=== PATIENT | female | born 1995 | race Hispanic/Latino ===

== ENCOUNTER 2020-05-31 12:01 | Emergency (ER) | payer OTHER ==
[~2020-05-31] VITALS: Ht 147.3 cm; Wt 54.4 kg
[2020-05-31] MEDS ORDERED: SODIUM CHLORIDE FLUSH 10 ML SYR INJ PRN (12:30)
--- OUTSIDE RECORDS SUMMARY | 2020-05-31 12:56 | XMS REPORT | Continuity of Care Document ---
Author Author [employer] Address Unknown Phone Unavailable Care Team Providers Care Part Time Receptionist Name Role Phone [employer] Unavailable Un available Problems Problem Status Onset Date Classification Date Reported Comments Source Onychomycosis (disorder) Active Problem 09/28/2018 [facility] Otitis externa (disorder) Acti ve Problem [facility] Skin - benign mole and nevus (disorder) Active Problem 09/28/2018 [facility] Sore throat symptom (finding) Active Problem [facility] Medications Medication Details Route Status Patient Instructions Ordering Provider Order Date Source Terbinafine hydrochloride 10 MG/ML Topical [place] 1 spray, TOP, BID, X 30 day, # 30 mL, 0 Refill(s), Pharmacy: [facility] Active 09/25/2018 [facility] Ciprofloxacin 3 MG/ML / Dexamethasone 1 MG/ML Otic Suspension [Ciprodex] 4 drp, LEFT EAR, BID, X 3 day, # 1 btl, 0 Refill(s), Pharmacy: [facility] Active 09/25/2018 [facility] ibuprofen 600 mg oral tablet 6 00 mg = 1 tab, PO, Q8H, PRN Pain or Fever, Take with food, X 10 day, # 30 tab, 0 Refill(s), Pharmacy: [facility] Active 09/25/2018 [facility] Allergies, Adverse Reactions, Alerts No Known Medication Allergies Immunizations No Data Provided for This Section Results No Data Provided for This Section Pathology Reports No Data Provided for This Section Diagnostic Reports No Data Provided for This Section Consultation Notes No Data Provided for This Section Discharge Summaries No Data Provided for This Section History and Physicals No Data Provided for This Section Vital Signs Vital Sign Value Date Comments Source BMI Calculated 21.66 09/25/2018 [facility] Weight 48.636 09/25/2018 [facility] Height 149.86 cm 09/25/2018 [facility] Respitory Rate 16 09/25/2018 [facility] Temperature Oral (F) 97.2 F 09/25/2018 [facility] Heart Rate 67 09/25/2018 [facility] Systolic (mm Hg) 111 09/25/2018 [facility] Diastolic (mm Hg) 75 09/25/2018 [facility] Encounters Location Location Details Encounter Type Encounter Number Reason For Visit Attending Provider ADM Date DC Date Status Source Outpatient [id number] IVETTE HADLEY 11/29/2016 [facility] Outpatient [id number] DANA MCCONNELL 09/25/2018 [facility] Outpatient [id number] Dana Killian 09/1509/26/2018 [facility] Procedures No Data Provided for This Section Assessment and Plan No Data Provided for This Section Plan of Care No Data Provided for This Section Social History Social History Date Source Social History TypeResponse Smoking Status Never smoker; Exposure to Tobacco Smoke None; Cigarette Smoking Last 365 Days No; Reg Smoking Cessation Counseling No entered on: 09/25/18 09/25/2018 [facility] Family History No Data Provided for This Section Advance Directives No Data Provided for This Section Functional Status No Data Provided for This Section
[2020-05-31] MEDS ORDERED: DONNATAL/LIDOCAINE/MAALOX 30 ML SUSP PO ONE (13:15)
[2020-05-31] MEDS ORDERED: KETOROLAC TROMETHAMINE 30 MG/ML VIAL IV ONE (13:15)
[2020-05-31 13:21] LABS: BASOPHILS % 0.2 % (0.0-1.0); EOSINOPHILS # (AUTO) 0.1 (0.0-0.4); EOSINOPHILS % 0.7 % (0.0-6.0); HEMATOCRIT 45.8 % (34.2-44.1); HEMOGLOBIN 15.5 g/dL (12.0-16.0); LYMPHOCYTES # (AUTO) 1.7 (1.0-3.2); LYMPHOCYTES % 10.2 % (18.0-39.1); MEAN CORPUSCULAR HEMOGLOBIN 30.6 pg (28-32); MEAN CORPUSCULAR HGB CONC 33.8 g/dL (31-35); MEAN CORPUSCULAR VOLUME 90.3 fL (81-99); MONOCYTES # (AUTO) 0.6 (0.2-0.8); MONOCYTES % 3.5 % (4.4-11.3); NEUTROPHILS # (AUTO) 13.8 (2.1-6.9); PLATELET COUNT 320 x10e3/uL (140-360); RED BLOOD COUNT 5.07 x10e6/uL (3.6-5.1); RED CELL DISTRIBUTION WIDTH 11.9 % (11.7-14.4)
[2020-05-31] MEDS ORDERED: LIDOCAINE VISC 2% SOLN 15 ML UDC ONE (13:32)
[2020-05-31] MEDS ORDERED: KETOROLAC TROMETHAMINE 30 MG/ML VIAL ONE (13:32)
[2020-05-31] MEDS ORDERED: MAGNESIUM/ALUMINUM/SIMETHICONE 30 ML UDC ONE (13:32)
[2020-05-31] MEDS ORDERED: BELLADONNA ALK/PHENOBARBITAL 5 ML UDC ONE (13:32)
[2020-05-31] MEDS ORDERED: SODIUM CHLORIDE 0.9% 1000ML 1,000 ML IV STA (13:43)
[2020-05-31] MEDS ORDERED: PIPER-TAZ 3.375 GM 50 ML IV ONE (13:45)
[2020-05-31] MEDS ORDERED: SODIUM CHLORIDE 0.9% 50ML 50 ML ONE (14:07)
[2020-05-31] MEDS ORDERED: IOPAMIDOL 370 MG/ML 200 ML INFUS..BTL INJ ONE (14:07)
[2020-05-31] MEDS ORDERED: PIPER-TAZ 3.375 GM 50 ML ONE (14:30)
[2020-05-31] MEDS ORDERED: SODIUM CHLORIDE 0.9% 1000ML 1,000 ML ONE (14:30)
--- NOTE | 2020-05-31 14:42 | Emergency Department Note ---
History of Present Illnes History of Present Illness Chief Complaint: epigastric pain History of Present Illness This is a 25 year old female. was doing well prior to this. 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: No Onset (how long ago): hour(s) (4) Location: epigastric pain Quality: sharp Radiation: Reports non-radiation Severity: moderate Onset quality: sudden Duration (how long): hour(s) (4) Timing of current episode: constant Progression: waxing and waning Chronicity: new Context: Denies recent illness, Denies recent surgery, Denies recent immobilization, Denies recent travel, Denies trauma/injury, Denies new medica tions, Denies hx of DVT/PE, Denies non-compliance w/ medications Exacerbating factors: none Associated symptoms: Reports denies other symptoms Treatments prior to arrival: none Past Medical/Family History Physician Review I have reviewed the patient's past medical and family history. Any updates have been documented here. Past Medical History Recent Fever: No Clinical Suspicion of Infectio: No New/Unexplained Change in Ment: No Past Medical History: None Past Surgical History: None Social History Smoking Cessation: Never Smoker Counseling Performed: No Alcohol Use: Occasional Any Illegal Drug Use: No Physically hurt or threatened: No Other Any Pre-Existing Lines (PICC,: No Review of Systems Review of Systems Constitutional: Reports no symptoms EENTM: Reports no symptoms Cardiovascular: Reports no symptoms Respiratory: Reports no symptoms Gastrointestinal: Reports as per HPI Genitourinary: Reports no symptoms Musculoskeletal: Reports no symptoms Integumentary: Reports no symptoms Neurological: Reports no symptoms Psychological: Reports no symptoms Endocrine: Reports no symptoms Hematological/Lymphatic: Reports no symptoms Review of other systems: All other systems negative Physical Exam Related Data Allergies: Coded Allergies: No Known Allergies (Unverified , 05/31/20) Triage Vital Signs Vital Signs Date Time Temp Pulse Resp B/P (MAP) Pulse Ox O2 Delivery O2 Flow Rate FiO2 05/31/20 12:15 98.5 100 18 138/83 100 Room Air Vital signs reviewed: Yes Physical Exam CONSTITUTIONAL Constitutional: Present well-developed, Present well-nourished HENT HENT: Present normocephalic, Present atraumatic, Present oropharynx clear/moist, Present nose normal HENT L/R: Present left ext ear normal, Present right ext ear normal EYES Eyes: Reports PERRL, Reports conjunctivae normal NECK Neck: Present ROM normal PULMONARY Pulmonary: Present effort normal, Present breath sounds normal CARDIOVASCULAR Cardiovascular: Present regular rhythm, Present heart sounds normal, Present capillary refill normal, Present normal rate GASTROINTESTINAL Abdominal: Present soft, Present nontender, Present bowel sounds normal GENITOURINARY Genitourinary: Present exam deferred SKIN Skin: Present warm, Present dry MUSCULOSKELETAL Musculoskeletal: Present ROM normal NEUROLOGICAL Neurological: Present alert, Present oriented x 3, Present no gross motor or sensory deficits PSYCHOLOGICAL Psychological: Present mood/affect normal, Present judgement normal Results Laboratory Result Diagram: 05/31/20 1255 Laboratory Laboratory Tests Test 05/31/20 12:55 White Blood Count 16.21 x10e3/uL (4.8-10.8) Red Blood Count 5.07 x10e6/uL (3.6-5.1) Hemoglobin 15.5 g/dL (12.0-16.0) Hematocrit 45.8 % (34.2-44.1) Mean Corpuscular Volume 90.3 fL (81-99) Mean Corpuscular Hemoglobin 30.6 pg (28-32) Mean Corpuscular Hemoglobin Concent 33.8 g/dL (31-35) Red Cell Distribution Width 11.9 % (11.7-14.4) Platelet Count 320 x10e3/uL (140-360) Neutrophils (%) (Auto) 85.0 % (38.7-80.0) Lymphocytes (%) (Auto) 10.2 % (18.0-39.1) Monocytes (%) (Auto) 3.5 % (4.4-11.3) Eosinophils (%) (Auto) 0.7 % (0.0-6.0) Basophils (%) (Auto) 0.2 % (0.0-1.0) Neutrophils # (Auto) 13.8 (2.1-6.9) Lymphocytes # (Auto) 1.7 (1.0-3.2) Monocytes # (Auto) 0.6 (0.2-0.8) Eosinophils # (Auto) 0.1 (0.0-0.4) Basophils # (Auto) 0.0 (0.0-0.1) Absolute Immature Granulocyte (auto 0.06 x10e3/uL (0-0.1) Lab results reviewed: Yes Laboratory comments lft/ua/uhcg all normal Imaging Imaging results reviewed: Yes Impressions [facility] [address] [place] [address] Patient Name: YOLIS BROCK MR #: [id number] : 1995 Age/Sex: 25/F Req #: [id number] Adm Physician: Ordered by: AMBAR BELL Report #: [id number] Location: [facility] Room/Bed: ____ Procedure: [id number] HOPD/US GALL BLADDER-HOPD Exam Date: Exam Time: REPORT STATUS: Signed EXAM: Right upper quadrant abdominal ultrasound INDICATION: Right upper quadrant pain COMPARISON: None. TECHNIQUE: Transverse and longitudinal images of the right upper quadrant abdomen were obtained FINDINGS: Liver: Size: 13.7 cm in the right midclavicular line, normal Appearance: Normal echogenicity, smooth contour Mass: No focal masses Gallbladder: No distention, pericholecystic fluid, wall thickening, stone, or reported sonographic Lizarraga's sign. Gallbladder wall measures 0.1 cm. Bile Ducts: Intrahepatic Ducts: No dilatation Extrahepatic Ducts: Common bile duct measures 0.3 cm, no dilatation Pancreas: Not well visualized. Kidney: The right kidney measures 9.2 cm without evidence of hydronephrosis or stone. Vessels: Aorta: Visualized portions are normal Inferior Vena Cava: Visualized portions are normal Main Portal Vein: 1 cm, normal size with hepatopetal flow. Free Fluid: No evidence of ascites. IMPRESSION: No evidence of cholelithiasis or cholecystitis. Hepatic steatosis. Signed by: Dr. Ricky Quiroz MD on 05/31/2020 3:20 PM Dictated By: RICKY QUIROZ MD 1520 Transcribed By: MARQUEZ on 05/31/20 1520 COPY TO: AMBAR BELL~ [facility] [address] [place] [address] Patient Name: YOLIS BROCK MR #: [id number] : 1995 Age/Sex: 25/F Req #: [id number] Adm Physician: Ordered by: AMBAR BELL Report #: [id number] Location: [facility] Room/Bed: Procedure: [id number] HOPD/CT ABD/PEL WITH CONTRAST-HOPD Exam Date: 05/31/20 Exam Time: 1434 REPORT STATUS: Signed EXAM: CT Abdomen and Pelvis WITH contrast INDICATION: Abdominal Pain COMPARISON: None. TECHNIQUE: Abdomen and pelvis were scanned utilizing a multidetector helical scanner from the lung base to the pubic symphysis after administration of IV contrast. Coronal and sagittal reformations were obtained. Routine protocol was performed. Scan was performed when during portal venous phase. IV CONTRAST: 100 cc of Isovue-370. ORAL CONTRAST: Water COMPLICATIONS: None RADIATION DOSE: Total DLP: 398 mGy*cm Estimated effective dose: (DLP x 0.015 x size factor) mSv CTDIvol has been reviewed. It is below the limits set by the Radiation Protocol Committee (RPC). FINDINGS: LINES and TUBES: None. LOWER THORAX: Trace pericardial fluid. HEPATOBILIARY: Diffuse mild hepatic steatosis. No evidence of focal lesion. No biliary ductal dilation. GALLBLADDER: No radio-opaque stones or sludge. No wall thickening. SPLEEN: No splenomegaly. PANCREAS: No focal masses or ductal dilatation. ADRENALS: No adrenal nodules KIDNEYS/URETERS: Kidneys enhance symmetrically. No evidence of hydronephrosis, solid mass, or stone. GI TRACT: There are fluid-filled ileal and proximal colon loops. There is mild wall thickening within the ileal loops. No evidence of bowel obstruction. PELVIC ORGANS/BLADDER: Unremarkable. LYMPH NODES: No lymphadenopathy. Prominent subcentimeter right lower quadrant lymph nodes, likely reactive. VESSELS: Mesenteric vascular engorgement near ileal loops. PERITONEUM / RETROPERITONEUM: No free air or fluid. BONES AND SOFT TISSUES: Unremarkable. CONCLUSION: Inflammatory changes of the distal ileum with fluid-filled ileal and proximal colonic loops, compatible with infectious or inflammatory ileitis. Recommend clinical correlation. Diffuse mild hepatic steatosis. No evidence of cholelithiasis or cholecystitis. Signed by: Dr. Ricky Quiroz MD on 05/31/2020 3:17 PM Dictated By: RICKY QUIROZ MD 16 Transcribed By: MARQUEZ on 05/31/201516 COPY TO: AMBAR BELL~ Assessment & Plan Medical Decision Making MDM cholecystitis, cholelithiasis, colitis,eneteritis Assessment & Plan Final Impression: (1) Ileitis Depart Disposition: HOME, SELF-CARE Last Vital Signs Date Time Temp Pulse Resp B/P (MAP) Pulse Ox O2 Delivery O2 Flow Rate FiO2 05/31/20 12:15 98.5 100 18 138/83 100 Room Air Medications in the ED Sodium Chloride 10 ml PRN PRN INJ IV SITE FLUSH; Start 05/31/20 at 12:30; Stop 06/30/20 at 12:29 Ketorolac Tromethamine 30 mg ONCE ONCE IV Last administered on 05/31/20at 13:30; Admin Dose 30 MG; Start 05/31/20 at 13:15; Stop 05/31/20 at 13:16; Status DC Belladonna Alkaloids/ Phenobarbital 60 ml ONCE ONCE PO Last administered on 05/31/20at 13:30; Admin Dose 60 ML; Start 05/31/20 at 13:15; Stop 05/31/20 at 13:16; Status DC Lidocaine HCl 15 ml STK-MED ONCE .ROUTE ; Start 05/31/20 at 13:32; Stop 05/31/20 at 13:25; Status DC Belladonna Alkaloids/ Phenobarbital 10 ml STK-MED ONCE .ROUTE ; Start 05/31/20 at 13:32; Stop 05/31/20 at 13:25; Status DC Ketorolac Tromethamine 30 mg STK-MED ONCE .ROUTE ; Start 05/31/20 at 13:32; Stop 05/31/20 at 13:26; Status DC Magnesium Aluminum Silicate 30 ml STK-MED ONCE .ROUTE ; Start 05/31/20 at 13:32; Stop 05/31/20 at 13:26; Status DC Sodium Chloride 1,000 ml @ 1,000 mls/hr Q1H STAT IV ; Start 05/31/20 at 13:43; Stop 05/31/20 at 14:42 Piperacillin Sod/ Tazobactam Sod 50 ml @ 100 mls/hr ONCE ONCE IV ; Start 05/31/20 at 13:45; Stop 05/31/20 at 14:14; Status DC Sodium Chloride 50 ml @ ud STK-MED ONCE .ROUTE ; Start 05/31/20 at 14:07; Stop 05/31/20 at 14:00; Status DC Iopamidol 74,000 mg STK-MED ONCE INJ ; Start 05/31/20 at 14:07; Stop 05/31/20 at 14:01; Status DC Sodium Chloride 1,000 ml @ ud STK-MED ONCE .ROUTE ; Start 05/31/20 at 14:30; Stop 05/31/20 at 14:26; Status DC Piperacillin Sod/ Tazobactam Sod 50 ml @ ud STK-MED ONCE .ROUTE ; Start 05/31/20 at 14:30; Stop 05/31/20 at 14:26; Status DC AMBAR BELL May 31, 2020 14:42
--- NOTE | 2020-05-31 15:20 | Diagnostic Imaging Report ---
EXAM: CT Abdomen and Pelvis WITH contrast INDICATION: Abdominal Pain COMPARISON: None. TECHNIQUE: Abdomen and pelvis were scanned utilizing a multidetector helical scanner from the lung base to the pubic symphysis after administration of IV contrast. Coronal and sagittal reformations were obtained. Routine protocol was performed. Scan was performed when during portal venous phase. IV CONTRAST: 100 cc of Isovue-370. ORAL CONTRAST: Water COMPLICATIONS: None RADIATION DOSE: Total DLP: 398 mGy*cm Estimated effective dose: (DLP x 0.015 x size factor) mSv CTDIvol has been reviewed. It is below the limits set by the Radiation Protocol Committee (RPC). FINDINGS: LINES and TUBES: None. LOWER THORAX: Trace pericardial fluid. HEPATOBILIARY: Diffuse mild hepatic steatosis. No evidence of focal lesion. No biliary ductal dilation. GALLBLADDER: No radio-opaque stones or sludge. No wall thickening. SPLEEN: No splenomegaly. PANCREAS: No focal masses or ductal dilatation. ADRENALS: No adrenal nodules KIDNEYS/URETERS: Kidneys enhance symmetrically. No evidence of hydronephrosis, solid mass, or stone. GI TRACT: There are fluid-filled ileal and proximal colon loops. There is mild wall thickening within the ileal loops. No evidence of bowel obstruction. PELVIC ORGANS/BLADDER: Unremarkable. LYMPH NODES: No lymphadenopathy. Prominent subcentimeter right lower quadrant lymph nodes, likely reactive. VESSELS: Mesenteric vascular engorgement near ileal loops. PERITONEUM / RETROPERITONEUM: No free air or fluid. BONES AND SOFT TISSUES: Unremarkable. CONCLUSION: Inflammatory changes of the distal ileum with fluid-filled ileal and proximal colonic loops, compatible with infectious or inflammatory ileitis. Recommend clinical correlation. Diffuse mild hepatic steatosis. No evidence of cholelithiasis or cholecystitis. Signed by: Dr. Emi Bazan MD on 05/31/2020 3:17 PM
--- NOTE | 2020-05-31 15:23 | Diagnostic Imaging Report ---
EXAM: Right upper quadrant abdominal ultrasound INDICATION: Right upper quadrant pain COMPARISON: None. TECHNIQUE: Transverse and longitudinal images of the right upper quadrant abdomen were obtained FINDINGS: Liver: Size: 13.7 cm in the right midclavicular line, normal Appearance: Normal echogenicity, smooth contour Mass: No focal masses Gallbladder: No distention, pericholecystic fluid, wall thickening, stone, or reported sonographic Lizarraga's sign. Gallbladder wall measures 0.1 cm. Bile Ducts: Intrahepatic Ducts: No dilatation Extrahepatic Ducts: Common bile duct measures 0.3 cm, no dilatation Pancreas: Not well visualized. Kidney: The right kidney measures 9.2 cm without evidence of hydronephrosis or stone. Vessels: Aorta: Visualized portions are normal Inferior Vena Cava: Visualized portions are normal Main Portal Vein: 1 cm, normal size with hepatopetal flow. Free Fluid: No evidence of ascites. IMPRESSION: No evidence of cholelithiasis or cholecystitis. Hepatic steatosis. Signed by: Dr. Emi Bazan MD on 05/31/2020 3:20 PM
[2020-05-31] MEDS ORDERED: METHYLPREDNISOLONE SOD SUCC 125 MG/2ML VIAL IV ONE (16:15)
[2020-05-31 16:20] VITALS: BP 112/70
[2020-05-31] MEDS ORDERED: METHYLPREDNISOLONE SOD SUCC 125 MG/2ML VIAL ONE (16:32)
== END 2020-05-31 16:38 | disposition home or self-care (01) ==
LOC: FSED 12:21
DX: R10.13 Epigastric pain (principal); K52.9 Noninfective gastroenteritis and colitis, unspecified; K76.0 Fatty (change of) liver, not elsewhere classified
CPT/HCPCS: 36415; 74177; 76705; 80048; 80076; 81003; 81025; 85025; 96374; 96375; 99284; J1885; J2543; J2930; J7030; Q9967